=== PATIENT | female | born 1975 | race Caucasian/White ===

== ENCOUNTER → 2023-05-07 10:54 | Outpatient (REF) | payer BC, SELFPAY | LOC: DHCBC MAIN 10:54 | PROVIDERS: ATTENDING PHYSICIAN Internal Medicine Cardiovascular Disease; FAMILY PHYSICIAN Physician Assistant Medical | DX: I63.9 Cerebral infarction, unspecified (principal); Q21.12 Patent foramen ovale; R00.0 Tachycardia, unspecified | CPT/HCPCS: 93306 ==

== ENCOUNTER 2023-10-26 00:43 | Observation (INO) | payer BC, SELFPAY ==
[2023-10-25 20:11] VITALS: BP 160/96
[2023-10-25 20:49] LABS: % Basophils 0.8 % (0-2); % Eosinophils 1.2 % (0-6); % Immature Granulocytes 0.2 % (0-0.5); % Lymphocytes 28.2 % (20.5-51.1); % Monocytes 6.4 % (1.7-9.3); % Neutrophils 63.2 % (42.2-75.2); Absolute Basophils 0.1 10^3/uL (0-0.2); Absolute Eosinophils 0.1 10^3/uL (0-0.7); Absolute Lymphocytes 2.6 10^3/uL (1.2-3.4); Absolute Monocytes 0.6 10^3/uL (0.1-0.6); Absolute Neutrophils 5.9 10^3/uL (1.4-6.5); Hematocrit 39.3 % (37.0-47.0); Hemoglobin 13.5 g/dL (12.0-16.0); Mean Corp Hgb Conc. 34.4 g/dL (33.0-37.0); Mean Corpuscular Hgb 28.8 pg (27.0-31.0); Mean Platelet Volume 9.8 fL (7.4-10.4); Nucleated Red Blood Cells % 0 %; Platelet Count 349 10^3/uL (130-400); Red Blood Cell Count 4.68 10^6/uL (4.20-5.40); Red Cell Dist. Width 13.7 % (11.5-14.5); White Blood Cell Count 9.3 10^3/uL (4.8-10.8)
[2023-10-25 21:01] LABS: HCG, Serum Qualitative Screen Negative
[2023-10-25 21:05] LABS: ALT (SGPT) 16 U/L (0-35); AST (SGOT) 21 U/L (14-36); Albumin 4.6 g/dl (3.5-5.0); Alkaline Phosphatase 54 U/L (38-126); Blood Urea Nitrogen 9 mg/dl (7-17); Calcium 9.9 mg/dl (8.4-10.2); Carbon Dioxide 23 mmol/L (22-30); Chloride 107 mmol/L (98-107); Glucose 109 mg/dl (70-99); Potassium 4.3 mmol/L (3.5-5.1); Sodium 138 mmol/L (135-145); Total Bilirubin 0.3 mg/dl (0.2-1.3); Total Protein 7.5 g/dl (6.3-8.2); eGFR > 60.00
[2023-10-25 22:46] VITALS: BP 119/66
[2023-10-25 22:48] VITALS: BMI 32.8
--- NOTE | 2023-10-25 22:58 | ED.CVA ---
History of Present Illness
<PARAMJIT Gong - Last Filed: 10/26/23 01:31>
General
Chief Complaint: CVA/TIA Symptoms
Source: patient
Time Seen by Provider: 10/25/23 22:45
Onset of Stroke Symptoms
Onset of symptoms known: Yes
Date of onset of symptoms: 10/15/23
Time pt last seen normal is known: No
History of Present Illness
History of Present Illness:
Patient is a 48 y/o female with PMHx cryptogenic CVA, PFO s/p repair, migraines, HLD, hypothyroidism, and anxiety presenting for intermittent confusion heavy legs x3 days. patient states that Wednesday night she had a 'tongue twister' where she states
she could not get a sentence out properly. She states this only happened with one sentence and her did not notice it. She states it also felt like she had 'sea legs' and states they were not really weak but felt 'heavy.' She states that when
she woke up Wednesday she had an intermittent headache all day. She states it was located to the left scientologist and was a 3/10 when it would come on. She states on Wednesday her legs still felt heavy but she was no longer having headaches. She states she
had one episode of the 'tongue twister' again with one sentence and then did not have it again. She states that today she had a couple episodes of not feeling mentally sharp. She states that she had an intermittent FERRELL throughout the day as well. She
denies any head trauma or recent travel. She denies any recent illnesses. She denies any fevers, vision changes, neck pain, cough, sore throat, SOB, CP.
Past History
<PARAMJIT Gong - Last Filed: 10/26/23 01:31>
Past History
ED Past Medical History: Hypothyroidism and Other (migraines (infrequent))
ED Past Surgical History: None
Social History
Tobacco: Non-smoker
Alcohol: Occasional
Drug: None
Personal:
Living: with family
Employment: Employed
Phy Exam
<PARAMJIT Gong - Last Filed: 10/26/23 01:31>
Physical Exam
Physical Exam:
GENERAL: Alert , in no apparent distress
EYE: pupils equal and reactive
Throat: Airway intact, no exudates
NECK: Supple, no significant adenopathy.
CARDIAC: Regular rate and rhythm .
LUNGS: Clear breath sounds bilaterally, no acute respiratory distress, no wheezes/rales/rhonchi
ABDOMEN: Soft, nondistended, nontender, no cvat
NEUROLOGICAL: Alert and oriented x3, no focal neuro deficits, no meningeal signs.
SKIN: Warm and dry, skin intact.
MUSCULOSKELETAL: 5/5 strength in upper and lower extremities. Sensation intact in all extremities.
PSYCH: Normal and appropriate interaction.
Course
<PARAMJIT Gong - Last Filed: 10/26/23 01:31>
Orders/Labs/Results
Orders:
Orders
10/25/23 20:19
Electrocardiogram (*1) Urgent
Reason for Study: Vertigo / Dizzy
EKG- Treatment ONCE
Test Result ONCE
10/25/23 20:40
Complete Blood Count/With Diff Urgent
Comprehensive Metabolic Panel Urgent
HCG, Serum Qualitative Screen Urgent
10/25/23 20:41
CT Head W/o Iv Contrast Urgent
Comment:
Reason For Exam: intermittent confusion
10/26/23 00:28
Admit/Transfer Patient As Directed
Co-Sign Provider:
Level of Care: Observation services
Assign to:: Telemetry
Physician / Group: htay
Diagnosis: eval for TIA/CVA
Reason for Telemetry: CVA/TIA
Date to Stop Telemetry: 10/29/23
Time to Stop Telemetry: 11:00
10/26/23 00:30
Code Status As Directed
Resuscitation Status: Full Code
10/26/23 01:23
Acetaminophen [Tylenol] 650 mg PO Q4HPRN PRN
10/29/23 11:00
DC Protocol for Telemetry ONCE
Abnormal Lab Results
10/25/23
20:40
Glucose 109 H mg/dl
(70-99)
10/25/23 20:40
10/25/23 20:40
Vital Signs
Initial and Last Documented VS:
Initial Vital Signs
Temp Pulse Resp BP Pulse Ox
98.4 F 82 18 160/96 100
10/25/23 20:11 10/25/23 20:11 10/25/23 20:11 10/25/23 20:11 10/25/23 20:11
Last Documented Vital Signs
Temp Pulse Resp BP Pulse Ox
98.4 F 68 22 130/79 98
10/25/23 20:11 10/26/23 01:00 10/26/23 01:00 10/26/23 01:00 10/26/23 00:00
<Gema Winslow, DO - Last Filed: 10/26/23 01:40>
Orders/Labs/Results
Orders:
Orders
10/25/23 20:19
Electrocardiogram (*1) Urgent
Reason for Study: Vertigo / Dizzy
EKG- Treatment ONCE
Test Result ONCE
10/25/23 20:40
Complete Blood Count/With Diff Urgent
Comprehensive Metabolic Panel Urgent
HCG, Serum Qualitative Screen Urgent
10/25/23 20:41
CT Head W/o Iv Contrast Urgent
Comment:
Reason For Exam: intermittent confusion
10/26/23 00:28
Admit/Transfer Patient As Directed
Co-Sign Provider:
Level of Care: Observation services
Assign to:: Telemetry
Physician / Group: htay
Diagnosis: eval for TIA/CVA
Reason for Telemetry: CVA/TIA
Date to Stop Telemetry: 10/29/23
Time to Stop Telemetry: 11:00
10/26/23 00:30
Code Status As Directed
Resuscitation Status: Full Code
10/26/23 01:23
Acetaminophen [Tylenol] 650 mg PO Q4HPRN PRN
10/29/23 11:00
DC Protocol for Telemetry ONCE
Abnormal Lab Results
10/25/23
20:40
Glucose 109 H mg/dl
(70-99)
10/25/23 20:40
10/25/23 20:40
Vital Signs
Initial and Last Documented VS:
Initial Vital Signs
Temp Pulse Resp BP Pulse Ox
98.4 F 82 18 160/96 100
10/25/23 20:11 10/25/23 20:11 10/25/23 20:11 10/25/23 20:11 10/25/23 20:11
Last Documented Vital Signs
Temp Pulse Resp BP Pulse Ox
98.4 F 68 22 130/79 98
10/25/23 20:11 10/26/23 01:00 10/26/23 01:00 10/26/23 01:00 10/26/23 00:00
<PARAMJIT Gong - Last Filed: 10/26/23 01:31>
MDM/Problems Addressed
Differential Diagnosis Includes:
Stroke, TIA, ICH, meningitis, encephalitis
<PARAMJIT Gong - Last Filed: 10/26/23 01:31>
*Radiology
Radiology exam reviewed: radiology read reviewed (Head CT: No acute intracranial abnormality noted. )
*Pulse Oximetry
Patient hypoxic: no
*EKG
Interpreted by ED Provider?: NA
EKG Intrepretation Date: 10/26/23
Interpretation: normal
Comparison EKG: no changes
Heart Rate: 73
Rate: normal
Rhythm: sinus
Ermine: normal axis
Interval: normal interval
QRS Pattern: normal QRS
Ischemia: no ischemia
*Drafting Supervisor Interpretation
Rate: Drafting Supervisor- N/A
*Critical Care Note
Total Time (30-74mins, 75-104mins- exclusive of procedures): Not Applicable
ED Attending Note
<PARAMJIT Gong - Last Filed: 10/26/23 01:31>
-
Portions of this chart may have been created with voice recognition software.� Occasional wrong word or��sound alike� substitutions may have occurred due to the inherent limitations of voice recognition software.
<Gema Winslow DO - Last Filed: 10/26/23 01:40>
ED Attending Note
Patient seen and examined by attending physician: Yes
I performed the substantive portion of visit, reviewed & personally made and approve the management plan that is documented in note by myself or NAVYA.: Yes
ED Attending Note:
This is a 48-year-old female who has history of embolic CVA March 2022 related to PFO that was repaired June 2022. At that time in March she presented with stuttering paresthesia of right arm, right face as well as some word searching. No
recurrent episodes and patient has been feeling well until 3 days ago when she developed a brief episode of stuttering feeling that she briefly became tongue-tied. No other associated symptoms but since then she has had intermittent headache,
bilateral legs intermittently feeling 'rubbery' and then today while at work she suffered a period of confusion as well as again tonight while playing cards with her daughter she felt that she could not concentrate and also noted another episode of
becoming tongue-tied where her words briefly came out stuttering. She denies a sense of word searching nor slurring.
These various symptoms have not been occurring simultaneously but are somewhat similar to brief symptoms that occurred March 2022.
She has had no chest pain, no dizziness nor lightheadedness, no palpitations, no nausea nor vomiting.
She is maintained on low-dose aspirin, levothyroxine, metoprolol.
She had been maintained on a statin but was discontinued by cardiology and she reports follow-up lipid panel in 6 weeks after discontinuation, lipid were reportedly at goal March 2023.
Currently has a normal menses now. Menstrual periods have remained monthly but increased bleeding with each menses.
Patient is bright and alert, pleasant, appears in no acute distress.
Heart is regular rate and rhythm.
No focal neurodeficits. Gait is steady. NIH stroke scale 0.
Concern for stuttering TIA symptoms, other consideration is orthostasis, anemia, arrhythmia, electrolyte abnormality.
With complaints of intermittent confusion, this has not been associated with a lapses in time. Nothing to suspect seizure
Labs are unremarkable.
CT of the head is unremarkable.
EKG is unremarkable.
Monitor shows normal sinus rhythm.
Orthostatic vital signs are negative.
It is reassuring that symptoms are very brief, momentary in nature, nonspecific and occurring singularly.
Upon review of records patient had somewhat similar stuttering symptoms in the past that is will hospitalize for continued observation, continue monitoring consider neurology evaluation, MRI.
Discharge Plan
Departure
Patient Disposition: Admit
Date of Disposition: 10/26/23
Time of Disposition: 00:34
Admit to: Telemetry
Admit to doctor: Lynne
Presentation/result/management discussed w/ accepting MD/DO: Hospitalist
Condition: Good
Discharge Problem:
TIA symptoms
Interventions
Interventions:
*Risk Screen - Suicide Last Done: 10/25/23 20:11
*General Assessment Last Done: 10/25/23 20:11
*Neglect/Abuse Screening Last Done: 10/25/23 20:11
ED- Fall Risk Assessment Last Done: 10/25/23 23:07
ED- Pulmonary Assessment Last Done: 10/25/23 23:07
ED- Neurological Assessment Last Done: 10/25/23 23:07
ED- Cardiac Assessment Last Done: 10/25/23 23:07
ED Swallowing Screen Last Done: 10/25/23 23:03
[2023-10-25 23:01] VITALS: BP 146/86
[2023-10-25 23:56] VITALS: BP 153/92
[2023-10-26] VITALS (10 sets, daily range): BP systolic 105–142; BP diastolic 73–91; PULSE 77; O2SAT 98; BMI 30.7
--- NOTE | 2023-10-26 00:22 | HPS.HSE ---
Family Physician
-
Family Physician: Jessica Avila
Chief Complaint
-
FERRELL and concern for acute CVA
History of Present Illness
HPI
48F significant HX cryptogenic CVA, on ASA s/p PFO repair, HTN, HLD, hypothyroidism, and anxiety, HX migriane seen at ER intermittent confusion and concern with stroke
- associated with heaviness in both legs without focal weakness for last 3 days
- unable to speak properly at one occasion
- [place] cloudiness with mentation today
- intermittent FERRELL throughout the day as well.
Medical History
Past Medical History
Past Medical History: Reports Hypothyroidism and Other (Migraines, vertigo )
Past Surgical History: Reports None
Social History
Tobacco: Non-smoker
Alcohol: None
Drug: None
Personal:
Living: With Family ( )
Employment: Employed
Family History
Family History: Other (father CVa late 70's )
Allergies / Home Medications
Allergies reflects when Allergies were last updated in [facility].
Home Medications with original date entered in [facility]
Allergy/Medication List:
Medications on admission are unable to be verified or confirmed at this time.
Pt reports takes daily vit b supplement
Review of Systems
-
Constitutional: Reports Fatigue
EENT: Reports No Symptoms
Respiratory: Reports No Symptoms
Cardiac: Reports No Symptoms
Abdomen/GI: Reports No Symptoms
: Reports No Symptoms
Musculoskeletal: Reports No Symptoms
Skin: Reports No Symptoms
Neurological: Reports Weakness (heaviness of both legs )
Endocrine: Reports No Symptoms
Hematologic/Lymphatic: Reports No Symptoms
Psych: Reports No Symptoms
Physical Exam
Vital Signs
Vital Signs
Temp Pulse Resp BP Pulse Ox
98.4 F 79 12 153/92 98
10/25/23 20:11 08/20/24 00:00 10/26/23 00:00 10/25/23 23:56 10/26/23 00:00
Physical Exam
General: Well Developed, Well Nourished and No Apparent Distress
HEENT: NormoCephalic, Moist mucous membranes and Atraumatic
Respiratory: Clear
Cardiac: S1/S2 and Regular Rhythm; No Murmur or Rub
GI: Soft, Non Tender, Non Distended and Normal Bowel Sounds; No Organomegaly
Rectal: Deferred by Provider
Musculoskeletal: No Clubbing, No Cyanosis and No Edema
Skin: No Rash
Neuro: AO x 3 and Nonfocal/grossly intact
Laboratory Results
-
10/25/23 20:40
10/25/23 20:40
Laboratory Results
Total Bilirubin 0.3 mg/dl (0.2-1.3) 10/25/23 20:40
AST 21 U/L (14-36) 10/25/23 20:40
ALT 16 U/L (0-35) 10/25/23 20:40
Alkaline Phosphatase 54 U/L (38-126) 10/25/23 20:40
Data Reviewed
-
CT Scan: Report Reviewed by me
Lab Data: Labs Reviewed by me
Old Records: Reviewed
Impression/Plan
-
Reviewed VS: Afebrile, unremarkable
Data
Unremarkable CBC and CMP
NEG HCG
HCT
No acute intracranial abnormality noted.
EKG
NORMAL SINUS RHYTHM
SEPTAL INFARCT (CITED ON OR BEFORE 15-MAR-2022)
ABNORMAL ECG
WHEN COMPARED WITH ECG OF 18-JUN-2022 05:00,
QUESTIONABLE CHANGE IN INITIAL FORCES OF SEPTAL LEADS
Last hospitalist admission: 03/15/22 - 03/18/22 PDX:
1. Acute embolic cerebrovascular accident.
2. Patent foramen ovale.
3. History of migraines.
4. Status post fall.
ASSESSMENT & PLAN
NOS neurologic symptoms without definite clinical evidence TIA/CVA DDX: Anxiety vs conversion disorder
No acute focal exam
NEG HCT
HX cryptogenic CVA, on ASA s/p PFO repair
Of note; Insisting on Brain MRI ' she reports last time NEG HCT but POS MRI for stroke and I am very much concern especially transient confusion and transient speech issue'
- cont ASA
- Brain MRI in AM
- Neuro evaluation
Essential HTN with HX labile control
180/101 > 128/86 unknown
- cont. Toprol XL
- PRN IV Hydralazine for SBP >165, DBP > 110
Hypothyroidism
- cont DORMITORY COUNSELOR LT4
H Migraine
-Takes vitamin B supplement daily
Vertigo HX
DVT Px: LMWH
Code: full code
Obs TLM
[2023-10-26] MEDS: TYLENOL 650 MG PO ×4 (01:27→17:02)
--- NOTE | 2023-10-26 02:22 | PTCARENOTE ---
Pt receivd from ED to 417-1. Pt oriented to room and call morgan.
[2023-10-26] MEDS: SYNTHROID 137 MCG PO (05:55)
[2023-10-26] MEDS: TOPROL XL 25 MG PO (07:46)
[2023-10-26] MEDS: LOW STRENGTH ASPIRIN 81 MG PO (07:46)
[2023-10-26] MEDS: ZESTRIL PO (07:47)
[2023-10-26] MEDS: ZESTRIL 10 MG PO (08:02)
--- NOTE | 2023-10-26 08:37 | W.PN.HOSP.TC ---
Today's Communication/Plan
-
MRI of the brain. Cardiac monitoring.
Assessment / Plan
Assessment / Plan
Physical exam:
General: Well Developed, Well Nourished and No Apparent Distress
HEENT: Normocephalic, Atraumatic and Moist Mucous Membranes
Respiratory: Clear to Auscultation; Negative Wheezes, Rales or Rhonchi
Cardiac: Regular Rhythm and S1/S2
GI: Soft, Nontender and Nondistended
Musculoskeletal: No Clubbing, No Cyanosis and No Edema
Neuro: Awake, Alert and Oriented, no neurological deficits appreciated.
Psych: Anxious.
A/P:
Altered mental status associated with lightheadedness and lower extremity heaviness, rule out stroke and other etiologies-continue aspirin, agree with brain MRI as ordered, check lipid profile, continue NIH score, continue cardiac monitoring, PT OT
eval, neurology consult pending.
PFO-status post closure back in 2022
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
Paroxysmal supraventricular tachycardia-on beta-maria guadalupe, continue cardiac monitoring
Hypertension-continue home antihypertensives Toprol and lisinopril but allow permissive hypertension.
Hypothyroidism-continue thyroid replacement
DVT prophylaxis-Lovenox
CODE STATUS-full code
Anticipated Discharge: 24 - 48 hours
Subjective/Interval History
-
Date of Service: October 26, 2023
Patient feels this transient episodes of being 'woozy' and feels her legs heavy and she just had one episode of those this morning. She states symptoms are similar to when she had a stroke in the past. Denies focal weakness though or paresthesia.
No chest pain or shortness of breath.
Objective Data
-
Labs:
Laboratory Results
10/25/23
20:40
WBC 9.3
Hgb 13.5
Hct 39.3
Plt Count 349
Sodium 138
Potassium 4.3
Chloride 107
Carbon Dioxide 23
BUN 9
Creatinine 0.7
Glucose 109 H
Calcium 9.9
Total Bilirubin 0.3
AST 21
ALT 16
Alkaline Phosphatase 54
Vital Signs:
Vital Signs
Temp Pulse Resp BP Pulse Ox
98.1 F 77 18 141/80 99
10/26/23 02:29 10/26/23 08:02 10/26/23 02:29 10/26/23 08:02 10/26/23 02:29
I&O
10/25/23 10/26/23 10/27/23
06:59 06:59 06:59
Intake Total 480 / 480
Balance 480 / 480
[2023-10-26 08:44] LABS: HDL Cholesterol 48 mg/dl; LDL Cholesterol, Calculated 111 mg/dl; Total Cholesterol 177 mg/dl (50-199); Triglyceride 90 mg/dl (10-149); Very Low Density Lipoprotein 18 mg/dl (0-30)
--- NOTE | 2023-10-26 09:35 | PTCARENOTE ---
On initial assessment this am, pt stated having a headache, Tylenol administered as ordered for 4/10 pain LT side. Pt also stated while doing NIH scale that some numbness had returned to her RT hand.. B/P taken initially this am 105/85. Pt stated
this was quite low for her. Retaken and now 141/80. B/P meds given as ordered. Approximately 20 min later, pt called to say she had a hot feeling all over and then just didn't feel normal, woozy-like. B/P was 144/92 when PT/OT came to work with the
patient. Pt stated symptoms are starting to resolve. Dr. Christina in to see pt. Will continue to monitor and pt knows to call if any symptoms change or return.
--- NOTE | 2023-10-26 09:52 | PTOTSP ---
pt currently requires no assistance to complete simple ADLs, functional transfers, ambulation. pt demonstrates no overt deficits in vision, ROM, strength, coordination, cognition. no acute OT needs identified at this time, will sign off.
--- NOTE | 2023-10-26 14:55 | CM ---
Patient seen bedside, initial assessment completed. Patient resides with her spouse and children in a multiple story home, one step to enter. Patient denies the use of DME, VN, or SNF history. Patient confirms PCP Jessica Avila, pharmacy [facility] on [address]. Patient confirms prescription coverage, denies food, housing/utility, transportation insecurities at home. CM reviewed OBS status, refused to sign, inquiring if she will be switched to inpatient status. CM will continue to
follow for all discharge planning needs.
Plan; home no needs, per PT, no needs.
[2023-10-26] MEDS: LOVENOX 40 MG SC (17:01)
[2023-10-26] MEDS: B COMPLEX w/VITAMIN C 1 CAPLET PO (17:01)
[2023-10-26] MEDS: TORADOL 15 MG IV (17:38)
--- NOTE | 2023-10-26 17:51 | CON.NEURO4 ---
Consultation - Neurology 4
-
CONSULTING PHYSICIAN: Morris Man MD
REFERRING PHYSICIAN: Hospitalist
DICTATED BY: Morris Man MD
DATE/TIME OF REQUEST: October 25, 2023
DATE/TIME OF CONSULTATION: October 26, 2023 1000
Reason for Consultation: Slurred speech with right-sided weakness
History of Present Illness:
This is a 48-year-old right handed female who has presented to the hospital with (chief complaint) of slurred speech and right-sided weakness. She gives a history of chronic migraine headaches since childhood,
patent foramen ovale(s/p closure), left insula infarct (2022) hypothyroidism, and anxiety who had been in usual state of health till Wednesday. At that time she had blurred vision, intermittent episodes of slurred speech confusion disorientation and
right hand numbness,unsteady legs wobbly x3 days. Patient states that Wednesday night she had a 'tongue twister' where she states she could not get a sentence out properly. She states this only happened with one sentence and her did not notice
it. She states it also felt like she had 'sea legs' and states they were not really weak but felt 'heavy.' She states that when she woke up Wednesday she had an intermittent headache all day. She states it was located to the left bahai and was a
3/10 when it would come on. She states on Wednesday her legs still felt heavy but she was no longer having headaches. She states she had one episode of the 'tongue twister' again while having conversation and couldn't get her sentences right
intermittently.. She states that today she had a couple episodes of fogginess and not feeling mentally sharp.
She states that she had an intermittent HAs throughout the day as well over the left side
She does report that she had 1 miscarriage but no personal history of DVT or PE and no family history of hypercoagulable states or clotting disorders.. Denies any history of autoimmune disorder such as any facial rashes, lupus, or inflammatory
arthritis issues. Denies any type of drug use no tobacco use. No history of recent neck manipulation such as chiropractic work car accidents or roller coasters although she did have a fall without hitting her head in the past couple of days
Past Medical History: As above
Surgical History: Closure of patent foramen ovale
Family History: Migraines...Grandfather had heart attack relatively early in life and her father had stroke in his 70s.
Social History: lives at home with her family
Allergies: Late
Home Medications: Aspirin Synthroid metoprolol lisinopril
Review of Symptoms:
Patient denies any fever, headache, chest pain, shortness of breath, GI or symptoms.
�Per the HPI.�All systems are reviewed negative except above.
Vital Signs:
The patient has a Temp36.7 C Pulse 75 Resp 18 BP 129/80 Pulse Ox 99
Physical Exam:
The patient is afebrile, heart sounds S1 and S2 are regular , and chest is clear to auscultation bilaterally.
- If not clear, describe.
Neurologic Examination:
The patient is awake, alert and oriented x 3. She is able to follow commands and answer questions appropriately. There is no aphasia or dysarthria. On cranial nerve assessment, pupils are 3 mm bilateral, round and reactive to light and
accommodation. Visual zhang are full. Extraocular movements are intact. Facial sensations are intact and bilaterally symmetrical, there is no facial asymmetry. Hearing is intact bilaterally to normal conversation volume. Tongue palate and uvula
are midline. Sternocleidomastoid strengths are full bilaterally.
Motor strengths are 5/5 bilateral upper and lower extremities on medical research [place] scale. There is no drift or involuntary movement noted. Deep tendon reflexes are 2+ bilateral upper and lower extremities and Babinski is absent bilaterally.
Sensations of pain, touch, temperature and vibration are intact and bilaterally symmetrical. There was no extinction noted on double simultaneous stimulation.
Coordination is intact by finger to nose bilaterally. Romberg's unsteady. Gait independent
Lab Results:
Neuro Imaging: CT head normal cortical architecture normal ventricles
Impression:
Mrs IVETTE SAMUELS is a 48 year old F who has presented to the hospital with (symptoms/chief complaint).
Differentials for the patient's presentation include:
1. Complicated migraines
2. TIA
Patient has the following risk factors for their symptoms: Hypertension
Recommendations:
1. Verapamil 40 mg twice a day
2. Depakote 250 to 500 mg as tolerated
3. EEG
4. MRI head
5. Nurtec 75 mg prn (outpatient)
Discussed patient care with: Hospitalist
Allergies
-
Allergies
Allergy/AdvReac Type Severity Reaction Status Date / Time
latex Allergy Swelling Verified 06/17/22 06:17
Vital Signs and Labs
-
Vital Signs and Labs:
Vital Signs
Temp Pulse Resp BP Pulse Ox
36.7 C 75 18 129/80 99
10/26/23 15:00 10/26/23 15:00 10/26/23 15:00 10/26/23 15:00 10/26/23 15:00
Lab Results
10/25/23 20:40
10/25/23 20:40
Sodium 138 mmol/L (135-145) 10/25/23 20:40
Potassium 4.3 mmol/L (3.5-5.1) 10/25/23 20:40
BUN 9 mg/dl (7-17) 10/25/23 20:40
Glucose 109 mg/dl (70-99) H 10/25/23 20:40
Calcium 9.9 mg/dl (8.4-10.2) 10/25/23 20:40
LDL Cholesterol, Calc 111 mg/dl 10/26/23 06:34
Medications
-
Active Medications
Generic Name Dose Route Start Last Admin
Trade Name Freq PRN Reason Stop Dose Admin
Acetaminophen 650 mg 10/26/23 01:23 10/26/23 17:02
Acetaminophen 325 Mg Tablet PO 11/23/23 01:22 650 mg
Q4HPRN PRN Administration
FERRELL, mild pain, or temp >100.4F
Acetaminophen 650 mg 10/26/23 02:16
Acetaminophen 650 Mg Rectal Suppository RECTAL 11/23/23 02:15
Q4HPRN PRN
FERRELL, mild pain, or temp >100.4F
Aspirin 81 mg 10/26/23 08:00 10/26/23 07:46
Aspirin 81 Mg Chewable Tablet PO 11/23/23 07:59 81 mg
DAILY DIEGO Administration
Divalproex Sodium 500 mg 10/26/23 22:00
Divalproex 500 Mg Extended Release (24 Hr) Tablet PO 11/23/23 21:59
HS DIEGO
Enoxaparin Sodium 40 mg 10/26/23 18:00 10/26/23 17:01
Enoxaparin Sodium 40 Mg/0.4 Ml Syringe SC 11/23/23 17:59 40 mg
QPM DIEGO Administration
Ketorolac Tromethamine 15 mg 10/26/23 17:15 10/26/23 17:38
Ketorolac 15 Mg/Ml Injection IV 10/31/23 17:14 15 mg
Q6HPRN PRN Administration
moderate pain or headache
Levothyroxine Sodium 137 mcg 10/26/23 06:00 10/26/23 05:55
Levothyroxine 137 Mcg Tablet PO 11/23/23 05:59 137 mcg
SuTuThSa@0600 DIEGO Administration
Levothyroxine Sodium 150 mcg 10/27/23 06:00
Levothyroxine 150 Mcg Tablet PO 11/24/23 05:59
MoWeFr@0600 DIEGO
Metoprolol Succinate 25 mg 10/26/23 08:00 10/26/23 07:46
Metoprolol 25 Mg Extended Release Tablet PO 11/23/23 07:59 25 mg
DAILY DIEGO Administration
Sodium Chloride 0 flush 10/26/23 02:00
Sodium Chloride 0.9% (Flush) Syringe IV 11/23/23 01:59
PER PROTOCOL DIEGO
Verapamil HCl 40 mg 10/26/23 20:00
Verapamil 120 Mg Tablet PO 11/23/23 19:59
BID DIEGO
Vitamin B Complex/Vitamin C 1 caplet 10/26/23 18:00 10/26/23 17:01
Vitamin B Complex With Vitamin C Caplet PO 11/23/23 17:59 1 caplet
QPM DIEGO Administration
Home Medications
�Medication �Instructions �Recorded
levothyroxine 137 mcg tablet 137 mcg PO .SUTUTHSA Thyroid 03/15/22
(Synthroid)
levothyroxine 150 mcg tablet 150 mcg PO .MON.,WED.,FRI. Thyroid 03/15/22
(Synthroid)
therapeutic multivitamin 1 tab PO QPM Supplement 03/15/22
vitamin B complex 1 cap PO QPM Supplement 03/15/22
metoprolol succinate 25 mg 25 mg PO DAILY 04/13/22
tablet,extended release 24 hr
(Toprol XL)
aspirin 81 mg chewable tablet 81 mg PO DAILY #1 tab 06/18/22
lisinopril 10 mg tablet 10 mg PO DAILY 10/25/23
[2023-10-26] MEDS: ISOPTIN 40 MG PO (19:33)
[2023-10-26] MEDS: DEPAKOTE ER (24 HR RELEASE) 500 MG PO (21:42)
--- NOTE | 2023-10-27 02:57 | DOWNTIME ---
There was a [employer] Client Stretcher Leveler Operator Downtime on 10/27/2023 from 0100 to 10/27/2023 at 0252. Downtime documentation of patient's care, including medication administrations, has been reconciled in the electronic record per guidelines. Refer to the
patient's paper chart under the miscellaneous tab to see printed paper medication records and downtime forms.
[2023-10-27 03:30] VITALS: BP 114/75
[2023-10-27] MEDS: SYNTHROID 150 MCG PO (06:04)
[2023-10-27 06:52] LABS: Hemoglobin 13.9 g/dL (12.0-16.0); Mean Corp Hgb Conc. 33.9 g/dL (33.0-37.0); Mean Corpuscular Hgb 28.7 pg (27.0-31.0); Mean Corpuscular Volume 84.7 fL (81.0-99.0); Mean Platelet Volume 9.7 fL (7.4-10.4); Platelet Count 310 10^3/uL (130-400); Red Blood Cell Count 4.84 10^6/uL (4.20-5.40); Red Cell Dist. Width 13.7 % (11.5-14.5); White Blood Cell Count 6.3 10^3/uL (4.8-10.8)
[2023-10-27 07:00] VITALS: BP 140/86
[2023-10-27 07:33] LABS: Blood Urea Nitrogen 12 mg/dl (7-17); Carbon Dioxide 26 mmol/L (22-30); Chloride 108 mmol/L (98-107); Estimated Creatinine Clearance 96 ml/min; Glucose 94 mg/dl (70-99); Potassium 4.5 mmol/L (3.5-5.1); Sodium 140 mmol/L (135-145); eGFR > 60.00
[2023-10-27] MEDS: TOPROL XL 25 MG PO (09:26)
[2023-10-27] MEDS: LOW STRENGTH ASPIRIN 81 MG PO (09:26)
--- NOTE | 2023-10-27 09:48 | EEG.RPT ---
Electroencephalogram Report
Recording
Date of EE10/27/23
Type of EEG: Routine
Length of EEG recordin minutes
Done with Video Recording: Yes
Patient Status: Inpatient
Recording Conditions: Awake, Drowsy and Asleep
Hyperventilation Performed: Yes
Photic Stimulation Performed: Yes
Report
LESS THAN 1 HOUR EEG REPORT
LESS THAN 1 HOUR EEG INTERPRETATION:
Likely unremarkable EEG for age
CLINICAL CORRELATION:
Although normative values not been established for a person of this advanced age, the patient�s symmetry of the background suggests that this study was unremarkable.
A normal EEG does not rule out a diagnosis of epilepsy. If clinical suspicion for seizure persists, a prolonged recording may be warranted.
Clinical correlation is advised.
METHODS:
A 21 channel digitized electroencephalogram (EEG) was performed using the 10/20 international system of electrode placement and one-lead of ECG recorded. The [employer]ev[employer] quantitative review system was utilized.
ELECTROENCEPHALOGRAPHER IMPRESSION(S):
Quality of study
Good
Background
There was an low amplitude anterior-posterior voltage gradient of alpha-maximal frequency, typically theta.
With eye opening the background activity changed to a low voltage mixture of frequencies.
There were no significant asymmetries of background activity noted.
Sleep
Drowsiness present
Stage 1 and 2 sleep recorded
Hyperventilation
No driving
Photic Stimulation
No driving
ECG
Normal sinus rhythm
[2023-10-27] MEDS: ISOPTIN 40 MG PO (10:01)
--- NOTE | 2023-10-27 10:47 | W.PN.NEURO.1 ---
Today's Communication / Plan
-
Patient may be discharged home on verapamil 40 mg twice a day and Nurtec 75 mg as needed
She will continue with all other home medications
Neuro Assessment/Plan
Assessment
48-year-old lady with history of complicated migraine
Plan
Stop lisinopril
Continue verapamil 40 twice a day.
Continue metoprolol 25 mg daily
Nurtec 75 mg as needed
Subjective/Objective
Subjective Data
Date of Service: October 27, 2023
Patient feels better. Headaches have resolved. No further episodes of confusion. Currently speaking swallowing. legs still feel unsteady. However she has no difficulty standing or walking
Objective Data
Vital Signs
Temp Pulse Resp BP Pulse Ox
36.8 C 74 18 140/86 99
10/27/23 07:00 10/27/23 07:00 10/27/23 07:00 10/27/23 07:00 10/27/23 07:00
Lab Results
10/27/23 06:38
10/27/23 06:38
Sodium 140 mmol/L (135-145) 10/27/23 06:38
Potassium 4.5 mmol/L (3.5-5.1) 10/27/23 06:38
BUN 12 mg/dl (7-17) 10/27/23 06:38
Glucose 94 mg/dl (70-99) 10/27/23 06:38
Calcium 10.0 mg/dl (8.4-10.2) 10/27/23 06:38
LDL Cholesterol, Calc 111 mg/dl 10/26/23 06:34
Patient Allergies
latex Allergy (Verified 06/17/22 06:17)
Swelling
[2023-10-27 11:00] VITALS: BP 138/84
--- NOTE | 2023-10-27 11:14 | W.PN.HOSP.TC ---
Today's Communication/Plan
-
Discharge
Assessment / Plan
Assessment / Plan
Physical exam:
General: Well Developed, Well Nourished and No Apparent Distress
HEENT: Normocephalic, Atraumatic and Moist Mucous Membranes
Respiratory: Clear to Auscultation; Negative Wheezes, Rales or Rhonchi
Cardiac: Regular Rhythm and S1/S2
GI: Soft, Nontender and Nondistended
Musculoskeletal: No Clubbing, No Cyanosis and No Edema
Neuro: Awake, Alert and Oriented, no neurological deficits appreciated.
Psych: Anxious.
Complicated migraine -stroke ruled out. Brain MRI negative. Neurology recommends discharge on verapamil, metoprolol, Nurtec.
PFO-status post closure back in 2022
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
Paroxysmal supraventricular tachycardia-on beta-maria guadalupe, continue cardiac monitoring
Hypertension-continue home antihypertensives Toprol and lisinopril but allow permissive hypertension.
Hypothyroidism-continue thyroid replacement
Obesity due to excess calories
DVT prophylaxis-Lovenox
CODE STATUS-full code
Dispo -medically stable for discharge. Outpatient follow-up with PCP and neurology. Discussed with neurology service.
32 minutes spent in discharge process.
Anticipated Discharge: Today
Subjective/Interval History
-
Date of Service: October 27, 2023
Patient seen and examined. Feeling back to baseline. No complaints. Denies headache.
Objective Data
-
Labs:
Laboratory Results
10/27/23
06:38
WBC 6.3
Hgb 13.9
Hct 41.0
Plt Count 310
Sodium 140
Potassium 4.5
Chloride 108 H
Carbon Dioxide 26
BUN 12
Creatinine 0.8
Glucose 94
Calcium 10.0
Vital Signs:
Vital Signs
Temp Pulse Resp BP Pulse Ox
98.2 F 74 18 140/86 99
10/27/23 07:00 10/27/23 07:00 10/27/23 07:00 10/27/23 07:00 10/27/23 07:00
I&O
10/26/23 10/27/23 10/28/23
06:59 06:59 06:59
Intake Total 480 / 480 1230 / 1230
Balance 480 / 480 1230 / 1230
Review of Systems
-
History Source: Patient
All other systems: Reviewed and negative
--- NOTE | 2023-10-27 11:34 | W.DS.TRANS ---
DC Summary - Thread Singer
-
Discharge Instructions:
Discharge Diagnosis/Procedures Complicated migraine
Diet Regular
Activity As tolerated
Driving Restrictions As prior to admission
Bathing Restrictions None
Instructions:
Stand-Alone Forms:
Changes to Home Medications: Yes
Discharge Medications:
DC Medications w/original date entered in [employer]
levothyroxine 137 mcg tablet (Synthroid) 137 mcg PO .SUTUTHSA Thyroid 03/15/22
levothyroxine 150 mcg tablet (Synthroid) 150 mcg PO .MON.,WED.,FRI. Thyroid 03/15/22
therapeutic multivitamin 1 tab PO QPM Supplement 03/15/22
vitamin B complex 1 cap PO QPM Supplement 03/15/22
metoprolol succinate 25 mg tablet,extended release 24 hr (Toprol XL) 25 mg PO DAILY Heart Failure 04/13/22
aspirin 81 mg chewable tablet 81 mg PO DAILY #1 tab 06/18/22
rimegepant 75 mg disintegrating tablet (Nurtec ODT) 75 mg PO ONCE PRN migraine headache #7 tabs 10/27/23
verapamil 40 mg tablet 40 mg PO BID #60 tabs 10/27/23
Home Medication Changes
Stop lisinopril
Pending Results: No
--- NOTE | 2023-10-27 12:32 | CM ---
Patient seen bedside, reports no needs to CM at this time. Patient plan for discharge today, home no needs. CM will continue to follow for all discharge planning needs.
Plan; home no needs, spouse to transport home.
[2023-10-27 21:30] LABS: Vitamin B12 350 pg/ml (239-931)
[2023-10-27 23:16] LABS: Free T4 1.37 ng/dl (0.78-2.19)
== END 2023-10-27 14:01 | disposition home or self-care (01) ==
LOC: 4 WEST ACU 00:43
PROVIDERS: Hospitalist; Student in an Organized Health Care Education/Training Program; ADMITTING PHYSICIAN Internal Medicine; ATTENDING PHYSICIAN Hospitalist; CONSULT PHYSICIAN Psychiatry & Neurology Neurology; EMERGENCY PHYSICIAN Emergency Medicine; FAMILY PHYSICIAN Physician Assistant Medical
DX: G43.109 Migraine with aura, not intractable, without status migrainosus (principal); E03.9 Hypothyroidism, unspecified; E78.5 Hyperlipidemia, unspecified; F41.9 Anxiety disorder, unspecified; R42 Dizziness and giddiness; R41.0 Disorientation, unspecified; R47.81 Slurred speech; I11.0 Hypertensive heart disease with heart failure; I47.19 Other supraventricular tachycardia; E66.09 Other obesity due to excess calories; Z87.74 Personal history of (corrected) congenital malformations of heart and circulatory system; Z86.73 Personal history of transient ischemic attack (TIA), and cerebral infarction without residual deficits; Z82.3 Family history of stroke; Z82.49 Family history of ischemic heart disease and other diseases of the circulatory system; Z91.040 Latex allergy status; Z68.30 Body mass index [BMI] 30.0-30.9, adult
CPT/HCPCS: 70450; 70551; 80048; 80053; 80061; 82607; 84439; 84443; 84703; 85025; 85027; 93005; 95816; 97162; 97165; 99285; G0378

== ENCOUNTER → 2024-03-21 15:31 | Outpatient (REF) | payer BC, SELFPAY | LOC: HWWDC 15:31 | PROVIDERS: ATTENDING PHYSICIAN Physician Assistant Medical | DX: Z12.31 Encounter for screening mammogram for malignant neoplasm of breast (principal) | CPT/HCPCS: 77063; 77067 ==

== ENCOUNTER 2024-06-02 07:07 | Day surgery (SDC) | payer BC, SELFPAY ==
[2024-05-31 13:45] VITALS: BMI 32.7
[2024-06-02 07:20] VITALS: BP 146/98
[2024-06-02 07:26] VITALS: BP 146/98
--- NOTE | 2024-06-02 09:08 | ITS.CL.IMPLP ---
Silk Spreader - Implant Loop
Implant Loop
Procedure Report:
Date of Procedure: June 02, 2024.
Procedure: Insertable Loop Recorder Explant.
Indication: Loop at the end of service.
Performing physician: Gregorio Perez MD, [facility].
Explant: Jerod GONZALEZ; Model: [id number] Serial #:[id number] implanted on 05/07/2022.
Technique: A time out was performed per protocol. The patient was prepped and draped in the usual fashion. Only local anesthesia was used. Lidocaine was applied to the left prepectoral subcutaneous tissue. An small incision was made over scar of
the implant. Dissection was carried to the capsule. The capsule was entered. The old device was explanted. The pocket appeared normal. Hemostasis was excellent. The pocket was irrigated saline. The incision was closed with 4-0 Monocryl suture. The
skin was closed with steri-strips. There was no blood loss. There were no complications. No fluoroscopy was used.
Conclusion: Uncomplicated insertable loop explantation.
Recommendation: Routine incision care.
cc: Carlos Valencia DO and Jessica Avila PA-C.
[2024-06-02 09:14] VITALS: BP 140/87
[2024-06-02 09:29] VITALS: BP 133/86
[2024-06-02 09:44] VITALS: BP 124/82
[2024-06-02 09:59] VITALS: BP 113/98
== END 2024-06-02 10:10 | disposition home or self-care (01) ==
LOC: CATH 07:07
PROVIDERS: ATTENDING PHYSICIAN Internal Medicine Cardiovascular Disease; FAMILY PHYSICIAN Physician Assistant Medical; OTHER PHYSICIAN Internal Medicine Cardiovascular Disease
DX: Z09 Encounter for follow-up examination after completed treatment for conditions other than malignant neoplasm (principal); Z86.73 Personal history of transient ischemic attack (TIA), and cerebral infarction without residual deficits; I10 Essential (primary) hypertension; I47.10 Supraventricular tachycardia, unspecified; E03.9 Hypothyroidism, unspecified; Z79.82 Long term (current) use of aspirin
CPT/HCPCS: 33286

== ENCOUNTER → 2024-09-13 08:56 | Outpatient (REF) | payer BC, SELFPAY | LOC: WDC 08:56 | PROVIDERS: ATTENDING PHYSICIAN Physician Assistant Medical | DX: N63.11 Unspecified lump in the right breast, upper outer quadrant (principal) | CPT/HCPCS: 76642; 77061; 77065 ==